=== PATIENT | male | born 1975 | race Caucasian/White ===

== ENCOUNTER 2024-11-30 11:49 | Emergency (ER) | payer OTHER, SELFPAY ==
[2024-11-30 12:00] VITALS: BP 126/75
[2024-11-30] MEDS: TORADOL 15 MG IV (14:26)
[2024-11-30 14:28] VITALS: BMI 32.4
--- NOTE | 2024-11-30 14:30 | ED.GENMED ---
History of Present Illness
General
Chief Complaint: Musculo-Skeletal Complaint
Source: patient
Exam Limitations: none
Time Seen by Provider: 11/30/24 13:49
History of Present Illness
History of Present Illness:
Patient was kicking a football slipped and fell on his left posterior back. This occurred about 24 hours ago. Complaining of moderate severe left back pain. No blood in the urine no abdominal pain no shortness of breath no head injury or neck
pain. No blood thinners.
Past History
Past History
ED Past Medical History: None
ED Past Surgical History: Orthopedic and Tonsilectomy
Social History
Tobacco: Non-smoker
Alcohol: Occasional
Personal:
Living: with family
Employment: Employed
Family History
Family History: Negative CAD
Review of Systems
Review of Systems
All Other Systems: Not applicable
ABD/GI: Reports no symptoms
Phy Exam
Physical Exam
Physical Exam:
TRAUMA EXAM:
VITAL SIGNS: Vital signs reviewed, cooperative
DISTRESS: No active disease
EYES: Pupils reactive, no orbital trauma
NOSE: No deformity or epistaxis
FACE AND SCALP: No scalp or facial trauma
NECK: Supple nontender
BACK: No spinal tenderness. Mild tenderness to the left mid back but no crepitus or point tenderness
RESPIRATORY: No distress, breath sounds normal, no tender chest wall
CARDIAC: No murmur, pulses equal and strong
ABDOMEN: Soft nontender bowel sounds normal
SKIN: Skin intact no bleeding, color normal
EXTREMITIES: Nontender
NEUROLOGICAL: Alert, oriented, no motor deficits
PSYCH: Mood affect normal
Course
Orders/Labs/Results
Orders:
Orders
11/30/24 12:07
Ribs, Left 3 View W/PA Chest CR [CR Ribs-left 3 Vw W/pa Chest] Urgent
Comment:
Reason For Exam: pain
11/30/24 13:16
CT Chest/abd/pel W Iv Cont Urgent
Reason For Exam: left rib 8-10 fx on XR
11/30/24 14:01
Ketorolac [Toradol] 15 mg IV NOW STA
11/30/24 14:24
Basic Metabolic Panel Urgent
Complete Blood Count/With Diff Urgent
PTT Urgent
Prothrombin Time Urgent
11/30/24 16:08
Cyclobenzaprine HCl [Flexeril] 10 mg PO NOW STA
Abnormal Lab Results
11/30/24
14:24
Absolute Monos (auto) 0.7 H 10^3/uL
(0.1-0.6)
11/30/24 14:24
11/30/24 14:24
Vital Signs
Initial and Last Documented VS:
Initial Vital Signs
Temp Pulse Resp BP Pulse Ox
97.8 F 89 20 126/75 97
11/30/24 12:00 11/30/24 12:00 11/30/24 12:00 11/30/24 12:00 11/30/24 12:00
Last Documented Vital Signs
Temp Pulse Resp BP Pulse Ox
97.8 F 89 20 126/75 97
11/30/24 12:00 11/30/24 12:00 11/30/24 12:00 11/30/24 12:00 11/30/24 12:00
MDM/Problems Addressed
Differential Diagnosis Includes:
Posterior trauma. Rib fracture x 3. No pneumothorax. Low suspicion for abdominal trauma however for completeness CT scan will be done. Pain management.
*Radiology
Radiology exam reviewed: radiology read reviewed (Rib fracture x 3) and other (CT scan shows rib fractures x 3 no additional findings)
*Pulse Oximetry
Patient hypoxic: no
*Critical Care Note
Total Time (30-74mins, 75-104mins- exclusive of procedures): Not Applicable
Update Note
Update Note:
Medically stable for discharge to follow-up. Will try Flexeril as a muscle relaxer. Only use like it and if needed.
ED Attending Note
-
Portions of this chart may have been created with voice recognition software.� Occasional wrong word or��sound alike� substitutions may have occurred due to the inherent limitations of voice recognition software.
Discharge Plan
Departure
Patient Disposition: Home (Routine Discharge)
Date of Disposition: 11/30/24
Time of Disposition: 16:09
Patient with high blood pressure during this ER visit?: Yes
Discharge Problem:
Left posterior rib fracture x 3
Instructions: Rib fracture or bruised rib - ED discharge instructions, BLOOD PRESSURE
Prescriptions:
New
cyclobenzaprine 10 mg tablet
10 mg PO TID PRN (Reason: muscle spasm) Qty: 14 0RF
hydrocodone-acetaminophen 5-300 mg tablet
1 tab PO Q6H PRN (Reason: Pain) Qty: 14 0RF
No Action
No Current Medications
doxycycline hyclate 100 MG capsule
100 mg PO BID Qty: 28 0RF
ibuprofen 800 MG tablet
800 mg PO Q6HPRN PRN (Reason: pain or fever, take with food) Qty: 30 0RF
ibuprofen 600 MG tablet
600 mg PO Q6HPRN PRN (Reason: pain) Qty: 20 0RF
metaxalone [Skelaxin] 800 MG tablet
800 mg PO TIDPRN PRN (Reason: muscle tightness/spasms) Qty: 20 0RF
Referrals:
Teja Madden MD [Family Provider] - Follow up in 2-3 days
Activity Restrictions/Additional Instructions:
Advil or Motrin for pain. You could take three tabs up to 6 hours apart. These are 200 mg tablets
You can try the Flexeril if you think there is a muscle spasm component
Vicodin for increased pain especially at night.
Do not however take the Flexeril and Vicodin together they can both cause significant drowsiness
Interventions
Interventions:
*Risk Screen - Suicide Last Done: 11/30/24 12:05
*General Assessment Last Done: 11/30/24 12:05
*Neglect/Abuse Screening Last Done: 11/30/24 12:05
*ED COVID-19 Vaccine History Last Done: 11/30/24 12:05
ED-Musculoskeletal Assessment Last Done: 11/30/24 15:41
Discharge Date and Time
Print Language: MOSOT[place]
[2024-11-30 14:38] LABS: % Basophils 0.4 % (0-2); % Eosinophils 0.7 % (0-6); % Immature Granulocytes 0.3 % (0-0.5); % Lymphocytes 23.2 % (20.5-51.1); % Monocytes 7.5 % (1.7-9.3); % Neutrophils 67.9 % (42.2-75.2); Absolute Eosinophils 0.1 10^3/uL (0-0.7); Absolute Lymphocytes 2.1 10^3/uL (1.2-3.4); Absolute Monocytes 0.7 10^3/uL (0.1-0.6); Absolute Neutrophils 6.1 10^3/uL (1.4-6.5); Hematocrit 43.6 % (39.0-52.0); Hemoglobin 14.7 g/dL (13.0-18.0); Mean Corp Hgb Conc. 33.7 g/dL (33.0-37.0); Mean Corpuscular Hgb 30.2 pg (27.0-31.0); Mean Corpuscular Volume 89.7 fL (80.0-94.0); Mean Platelet Volume 10.3 fL (7.4-10.4); Nucleated Red Blood Cells % 0 % (-); Platelet Count 209 10^3/uL (130-400); Red Blood Cell Count 4.86 10^6/uL (4.70-6.10); Red Cell Dist. Width 13.2 % (11.5-14.5)
[2024-11-30 14:47] LABS: INR 0.98; PT 13.3 Sec (11.4-14.6)
[2024-11-30 14:48] LABS: APTT 29.4 Sec (23.4-35.0); Blood Urea Nitrogen 16 mg/dl (9-20); Calcium 8.9 mg/dl (8.4-10.2); Carbon Dioxide 28 mmol/L (22-30); Chloride 102 mmol/L (98-107); Estimated Creatinine Clearance 114 ml/min; Glucose 96 mg/dl (70-99); Potassium 4.2 mmol/L (3.5-5.1); Sodium 139 mmol/L (135-145); eGFR > 60.00
[2024-11-30] MEDS: FLEXERIL 10 MG PO (16:21)
[2024-11-30 17:38] VITALS: BP 121/82
== END 2024-11-30 17:41 | disposition home or self-care (01) ==
LOC: EMR 11:49
PROVIDERS: Physician Assistant Medical; EMERGENCY PHYSICIAN Emergency Medicine; FAMILY PHYSICIAN Internal Medicine
DX: S22.42XA Multiple fractures of ribs, left side, initial encounter for closed fracture (principal); W01.0XXA Fall on same level from slipping, tripping and stumbling without subsequent striking against object, initial encounter; Y93.89 Activity, other specified; R10.9 Unspecified abdominal pain
CPT/HCPCS: 99284; 71101; 71260; 74177; 80048; 85025; 85610; 85730; Q9967